=== PATIENT | female | born 1945 | race Caucasian/White ===

== ENCOUNTER → 2017-03-16 | Outpatient (CLI) | payer MEDICARE, OTHER ==
[~2017-03-16] MED LIST: AMLO10TA82 PO; ASPI325T4 PO; AZAT50TA PO; BISA-65 PO; BSC10SU PR; BUDE10.2 IH; CALC-770 PO; CHOL500014 PO; CLOP75TA3 PO; CYAN10006 PO; FLC1T PO; HYDR-3702 PO; HYDR-3881 PO; LACT10SO6 PO; LEFL20TA PO; LEVO75TA10 PO; LVF500T PO; MAGN250T7 PO; MAGN400O7 PO; MECL12.5 PO; MELO-249 PO; METF500T PO; METH25VI11 IJ; MS15TCR PO; MULT-640 PO; NFR150C PO; OMEP40CA36 PO; ONDA4TAB8 PO; OXYC10TA74 PO; PANT40TA3 PO; PRD5T GT; PRED5TAB PO; RANI75TA PO; SIMV10TA PO; SMV10T PO; [UNRECOGNIZED DRUG - CODE] PO
[2017-03-16 14:33] LABS: BASOPHILS % (AUTO) 0 % (0-2); EOSINOPHILS # (AUTO) 0.4 10^3uL; EOSINOPHILS % (AUTO) 8 % (0-4); LYMPHOCYTES # (AUTO) 1.2 X10^3; MEAN CORPUSCULAR HGB CONC 33.1 g/dL (31.0-37.0); MEAN CORPUSCULAR VOLUME 95 FL (80-100); MEAN PLATELET VOLUME 8.9 FL (6.0-9.5); MONOCYTES # (AUTO) 0.5 X10^3; MONOCYTES % (AUTO) 8 % (3-11); NEUTROPHILS # (AUTO) 3.6 X10^3; NEUTROPHILS % (AUTO) 63 % (51-67); PLATELET COUNT 337 10^3uL (150-450); WHITE BLOOD COUNT 5.64 10^3uL (4.0-11.0)
[2017-03-16 14:36] LABS: MEAN CORPUSCULAR HEMOGLOBIN 31.4 PG (26.0-34.0)
[2017-03-16 14:55] LABS: ALBUMIN 4.3 g/dL (3.4-5.0); ANION GAP 17.3 MEQ/L (3-15); CALCULATED IONIZED CALCIUM 4.1 mg/dL (3.8-4.6); TOTAL PROTEIN 8.2 g/dL (6.4-8.5)
[2017-03-16 15:08] LABS: ERYTHROCYTE SEDIMENTATION RT* 56 mm/hr (0-23)
== END ==
LOC: LAB 14:17
PROVIDERS: ATTEND Internal Medicine Rheumatology
DX: Z79.899 Other long term (current) drug therapy (principal); L40.50 Arthropathic psoriasis, unspecified; E11.9 Type 2 diabetes mellitus without complications
CPT/HCPCS: 36415; 80053; 83036; 85025; 85652; 86140

== ENCOUNTER → 2017-04-15 | Outpatient (CLI) | payer MEDICARE, OTHER ==
[2017-04-15 14:23] LABS: BASOPHILS % (AUTO) 1 % (0-2); EOSINOPHILS # (AUTO) 0.4 10^3uL; EOSINOPHILS % (AUTO) 6 % (0-4); LYMPHOCYTES # (AUTO) 1.1 X10^3; MEAN CORPUSCULAR HGB CONC 32.7 g/dL (31.0-37.0); MEAN CORPUSCULAR VOLUME 97 FL (80-100); MEAN PLATELET VOLUME 8.8 FL (6.0-9.5); MONOCYTES # (AUTO) 0.5 X10^3; MONOCYTES % (AUTO) 8 % (3-11); NEUTROPHILS # (AUTO) 4.1 X10^3; NEUTROPHILS % (AUTO) 68 % (51-67); PLATELET COUNT 423 10^3uL (150-450); WHITE BLOOD COUNT 5.98 10^3uL (4.0-11.0)
[2017-04-15 14:34] LABS: ALBUMIN 4.1 g/dL (3.4-5.0); ANION GAP 13.1 MEQ/L (3-15); TOTAL PROTEIN 7.9 g/dL (6.4-8.5)
[2017-04-15 14:41] LABS: MEAN CORPUSCULAR HEMOGLOBIN 31.6 PG (26.0-34.0)
[2017-04-15 15:00] LABS: ERYTHROCYTE SEDIMENTATION RT* 45 mm/hr (0-23)
== END ==
LOC: LAB 14:04
PROVIDERS: ATTEND Internal Medicine Rheumatology
DX: Z79.899 Other long term (current) drug therapy (principal); L40.50 Arthropathic psoriasis, unspecified
CPT/HCPCS: 36415; 80053; 85025; 85652; 86140